=== PATIENT | female | born 1990 ===

== ENCOUNTER 2025-02-04 09:27 | Outpatient (REF) | payer OTHER, SELFPAY ==
[2025-02-04 13:33] LABS: MANUAL DIFF FLAG NO
[2025-02-04 13:53] LABS: Appearance Urine Clear; Glucose Urine UA Negative (Negative); PH 6.5 (5.0-9.0); Specific Gravity - Urine 1.025 (1.005-1.025)
[2025-02-04 13:54] LABS: Hematocrit 36.8 % (37.0-47.0); Hemoglobin 11.7 g/dl (12.0-16.0); Imm Gran Abs Auto 0.01 X10*3/uL (0.00-0.03); Imm Gran Pct Auto 0.2 % (0.0-0.4); Lymphocytes Absolute Auto 2.0 X10*3/uL (1.2-4.9); Mean Corpuscular HGB Conc 31.8 g/dl (31.0-35.0); Mean Corpuscular Hemoglobin 27.1 pg (27.0-33.0); Mean Corpuscular Volume 85.4 fL (80.0-98.0); NRBC Abs Auto 0.000 X10*3/uL (0.0-0.012); NRBC Pct Auto 0.0 /100WBC (0.0-0.2); Platelet Count 297 X10*3/uL (160-400); Red Blood Count 4.31 X10*6/uL (4.20-5.50); White Blood Count 5.3 X10*3/uL (4.8-10.8)
[2025-02-04 14:14] LABS: Alanine Aminotransferase 15 U/L (0-31); Albumin Level 4.2 g/dL (3.5-5.0); Alkaline Phosphatase 55 U/L (39-117); Anion Gap 11 (12-20); Aspartate Amino Transferase 23 U/L (5-31); Blood Urea Nitrogen 16 mg/dL (9-16); Calcium 9.0 mg/dL (8.4-10.2); Carbon Dioxide 25 mmol/L (22-29); Chloride 110 mmol/L (96-108); Cholesterol 164 mg/dL (<200); Estimated Glomerular Filt Rate > 60; HDL Cholesterol 60 mg/dL (>40); Potassium 4.3 mmol/L (3.3-5.1); Sodium 142 mmol/L (135-145); Total Protein 6.9 g/dL (6.5-8.0); Triglycerides 36 mg/dL (<150)
[2025-02-04 15:16] LABS: CT PCR Urine NOT DETECTED (Not Detect.); NG PCR Urine NOT DETECTED (Not Detect.)
[2025-02-05 08:25] LABS: HBS Num1 > 1000.00 mIU/mL (0-7.99); HBsAGNum1 0.42 S/CO (0.00-0.99); HIV Num 1 0.05 S/CO (0.00-0.99); Hepatitis B Surface Antigen Negative (Negative); ~HepC Num1 0.06 S/CO (0.00-0.79); ~Hepatitis B Surface Antibody REACTIVE (Nonreactive); ~Hepatitis C Antibody Nonreactive (Nonreactive)
[2025-02-05 08:29] LABS: Syphilis Screen Nonreactive (Nonreactive)
[2025-02-11 19:09] LABS: Chlamydia Pneumoniae Interp. Past Infection; Chlamydia Trachomatis IgA <1:16 titer (<1:16)
== END 2025-02-04 09:28 | disposition home or self-care (01) ==
LOC: HO.HKASLDS 09:27
PROVIDERS: Visit Provider Student in an Organized Health Care Education/Training Program
DX: Z76.89 Persons encountering health services in other specified circumstances (principal); Z01.89 Encounter for other specified special examinations; Z13.6 Encounter for screening for cardiovascular disorders; Z11.4 Encounter for screening for human immunodeficiency virus [HIV]; Z11.3 Encounter for screening for infections with a predominantly sexual mode of transmission; Z13.1 Encounter for screening for diabetes mellitus; Z13.220 Encounter for screening for lipoid disorders; Z52.4 Kidney donor; Z12.4 Encounter for screening for malignant neoplasm of cervix; N64.4 Mastodynia; R10.2 Pelvic and perineal pain; F12.90 Cannabis use, unspecified, uncomplicated; Z90.5 Acquired absence of kidney
CPT/HCPCS: 80053; 80061; 81003; 83036; 85025; 86631; 86632; 86706; 86780; 86803; 87340; 87389; 87491; 87591

== ENCOUNTER 2025-02-04 09:27 | Outpatient (AMB) | payer OTHER, SELFPAY ==
--- NOTE | 2025-02-04 09:05 | MHC.PC.OV ---
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 How many drinks containing alcohol do you have on a typical day when you are drinking?: 1 or 2 3. How often do you have six or more drinks on one occasion?: Never Total Score: 0 Coding
--- NOTE | 2025-02-04 09:42 | A.OFFPC_ITS ---
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 pain on her lower LEFT QUADRANT LIKE AROUND HER OVERY where her left kidney was remove to donate to mom. also both breast hurting most under or around the armpy area. Tomato Grader Required: No Accompanied by: Self / Same As Patient Allergies No Known Allergies Allergy (Verified 02/04/25 09:42) Tobacco use date assessed: 02/04/25 Dental Screening Dental Screen Date: 02/04/25 Did you have a dental visit in the last 12 months?: Yes Did you have a dental problem in the last 6 months where you did not have access to dental care?: No Was dental information given to patient?: Patient has dentist HPI HPI Comments History of Present Illness Details History of Present Illness The patient is a 34-year-old female presenting with breast pain. Breast Pain: - Experiencing for about a year, initial ly linked to menstrual cycle. - Pain now more intense, radiates to the underarm area. - Does not detect any lumps; reports inc reased pain with pressure. - Describes accompanying nausea; attribu harsh to irregular eating schedule. - Rates pain as 3-4 out of 10, still man ages daily functions. pelvic pain right -associated c menstrual cycle -hx of kidney donation Health Maintenance - Recommended complete blood count (CBC) , complete metabolic panel (CMP), lipid panel, and hemoglobin A1c. - Referral to gynecology for further [facility] health care. - Discussed ultrasound for both breast a nd pelvic evaluation. - Recommended weight management consulta tions post-laboratory assessment. - Advised pap smear, pending insurance r eferral completion. Review of Systems - General: Denies fever, chills. - Cardiovascular: Denies chest pain, pal pitations. - Respiratory: Denies shortness of breat h. - Gastrointestinal: Reports occasional n ausea, denies vomiting. - Musculoskeletal: Reports breast pain, denies other joint or muscle pain. - Gynecological: Reports regular menstru al cycles. 10-point ROS reviewed and negative excep t as noted in HPI Allergies Medication History - Notes not taking ibuprofen or any pain relievers for breast pain. 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 Alert and oriented x 3. Head: Normocephalic, atraumatic Eyes: Pupils equal, round, and reactive to light. Extraocular movements intact Throat: Oropharynx clear. No masses or lesions. ropharynx clear. Mucus membranes moist Neck: Supple. No lymphadenopathy. eft anterior descending artery distention. No jugular vein distention. No bruit. Cardiovascular: Regular rate and rhythm. Normal S1 and S2. No murmurs. murmurs, rubs, or gallops Lungs: Clear to auscultation bilaterally. Breath sounds equal bilaterally. No rales, ronchi, or wheezes. Abdomen: Non-tender. Non-distended. Bowel sounds auscultated. No masses or pain on palpation. hepatosplenomegaly. No mass/rebound/guarding Extremities: No cyanosis, clubbing, or edema. lubbing, cyanosis, and edema. 2+ pulses Neuro: Cranial nerves II-XII grossly intact. Motor/sensory intact. Reflexes 2+. Gait normal. Skin: Warm, dry, and intact. No rash. Discussion Notes I discussed the breast pain evaluation strategy, recommending an ultrasound to further investigate the etiology, possibly fibrocystic changes given the hormonal association. I suggested using ibuprofen 800 mg for discomfort and applying heating pads to the affected areas for symptomatic relief. For ongoing pelvic pain, I recommended a pelvic ultrasound to evaluate possible fibrotic tissue or ovarian cysts, considering the history of nephrectomy. I provided counseling on lifestyle modifications for managing nausea such as increasing meal frequency and avoiding prolonged fasting periods. We discussed the continuation of routine health maintenance tests and recommended necessary referrals to gynecology and a weight management clinic. Anticipatory guidance included the need for regular follow-ups and potential interventions based on pending test results. Plan 1. Mastodynia N64.4 - Plan to conduct breast ultrasound. - Recommending ibuprofen for symptom rel ief. - Use heating pad for additional comfort . 2.pelvic pain - for pelvic and trans vaginal us - Recommending ibuprofen for symptom rel ief. - Use heating pad for additional comfort . Treatment Summary Anticapatory Guidance - Emphasized the importance of routine f ollow-ups for preventative care. - Discussed potential for additional ref errals based on upcoming test results and ongoing evaluations. Patient Instructions - Use ibuprofen 800 mg for breast discom fort as needed. - Apply heating pad to painful areas. - Schedule recommended ultrasounds. - Maintain regular meal schedules to man age nausea. 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 - Desires to gain weight but reports laurie llenges in altering weight over past years. - No significant change in dietary habit s; mentions limited appetite affecting regular meal intake. - No recent changes in living situation. [facility] Family History (Updated 02/04/25 @ 09:47 by Shaheed Mace MA) Father No problems noted. Mother History of kidney transplant Social History (Updated 02/04/25 @ 09:47 by Shaheed Mace MA) [facility] Alcohol intake: current Alcohol intake frequency: holidays/special occasions only Patient Tobacco Use Status: Never used Tobacco service: No Current occupational status: employed Cognitive needs: No Hearing needs: No Vision needs: Yes (rx glasses) Questionnaire PHQ-9 Over the last 2 weeks, how often have you been bothered by any of the following problems? 1. Little interest or pleasure in doing things: not at all 2. Feeling down, depressed, or hopeless: not at all 3. Trouble falling or staying asleep, or sleeping too much: not at all 4. Feeling tired or having little energy: not at all 5. Poor appetite or overeating: not at all 6. Feeling bad about yourself - or that you are a failure or have let yourself or your family down: not at all 7. Trouble concentrating on things, such as reading the newspaper or watching television: not at all 8. Moving or speaking so slowly that other people could have noticed. Or the opp osite - being so fidgety or restless that you have been moving around a lot more than usual: not at all 9. Thoughts that you would be better off or of hurting yourself in some way: not at all Total score: 0 Source: Developed by Drs. Marquez Cavanaugh, Randy Gutiérrez and colleagues, with an educational oxana from [employer]. Thrive Questionnaire I am a: Patient What is your living situation today?: I have a steady place to live Within the past 12 months, did the food you bought not last and you didn't have the money to get more?: Never true Within the past 12 months, did you worry whether your food would run out before you got money to buy more?: I choose not to answer this question Do you have trouble paying for medicines?: No Do you have trouble getting transportation to medical appointments?: No Do you have trouble paying your heating and electricity bill?: Yes Do you have trouble taking care of your child, family member or friend?: No Are you currently unemployed and looking for a job?: No Are you interested in more education?: Yes Please select the resources that you would like help with: Utilities Currently or been in a relationship where the following occur: No concerns reported THRIVE Score: 1 AUDIT C Alcohol Use Questionnaire (AUDIT-C) 1. How often do you have a drink containing alcohol?: Monthly or less 2. How many drinks containing alcohol do you have on a typical day when you are drinking?: 1 or 2 Total Score: 1 ZOFIA-7 AMB Questionnaire ZOFIA-7 Feeling nervous, anxious, or on edge: 0 = Not at all Not being able to stop or control worryin = Several days Worrying too much about different things: 1 = Several days Trouble relaxin = Not at all Being so restless that it is hard to sit still: 0 = Not at all Becoming easily annoyed or irritable: 0 = Not at all Feeling afraid as if something awful might happen: 0 = Not at all Total ZOFIA-7 score (0-4 normal; 5-9 mild; 10-14 moderate; 15-21 severe): 2 Source: Developed by Drs. Marquez Cavanaugh, Randy Gutiérrez and colleagues, with an educational oxana from [employer]. Physical exam (Primary Care) Vital Signs: Last Vital Signs Temp 98.2 F 02/04/25 09:47 Pulse 76 02/04/25 09:47 Resp 16 02/04/25 09:47 BP 102/50 L 02/04/25 09:47 Pulse Ox 96 02/04/25 09:47 Oxygen Delivery Method Room Air 02/04/25 09:47 BMI result Body Mass Index 18.2 Tobacco/Smoking Status: Tobacco use Status Tobacco use date assessed 02/04/25 02/04/25 09:44 Patient Tobacco Use Status Never used Tobacco 02/04/25 09:47 PHQ-9: PHQ-9 Score PHQ-9: Total score 0 02/04/25 09:44 Currently or been in a relationship where the following occur: No concerns reported Coding Level of Care Code New Pt Level 3 (04463) Diagnoses Encounter to establish care Z76.89 Routine lab draw Z01.89 Hypertension screen Z13.6 Screening for HIV (human immunodeficiency virus) Z11.4 Routine screening for STI (sexually transmitted infection) Z11.3 Screening for diabetes mellitus Z13.1 Screening for lipoid disorders Z13.220 Breast pain N64.4 Pelvic pain R10.2 Kidney donor Z52.4 Cervical cancer screening Z12.4 Assessment & Plan Assessment & Plan (1) Encounter to establish care: Code(s): Z76.89 - Persons encountering health services in other specified circumstances (2) Routine lab draw: Code(s): Z01.89 - Encounter for other specified special examinations (3) Hypertension screen: Code(s): Z13.6 - Encounter for screening for cardiovascular disorders (4) Screening for HIV (human immunodeficiency virus): Code(s): Z11.4 - Encounter for screening for human immunodeficiency virus [HIV] (5) Routine screening for STI (sexually transmitted infection): Code(s): Z11.3 - Encounter for screening for infections with a predominantly sexual mode of transmission (6) Screening for diabetes mellitus: Code(s): Z13.1 - Encounter for screening for diabetes mellitus (7) Screening for lipoid disorders: Code(s): Z13.220 - Encounter for screening for lipoid disorders (8) Breast pain: Code(s): N64.4 - Mastodynia (9) Pelvic pain: Code(s): R10.2 - Pelvic and perineal pain (10) Kidney donor: Code(s): Z52.4 - Kidney donor (11) Cervical cancer screening: Code(s): Z12.4 - Encounter for screening for malignant neoplasm of cervix Plan Orders: Orders Comprehensive Met. Panel Today Z.89 - Persons encountering health services in other specified circumstances Hemoglobin A1c Today Z. - Persons encountering health services in other specified circumstances Hepatitis B Surface Antibody Today Z.89 - Persons encountering health services in other specified circumstances Hepatitis B Surface Antigen Today Z76.89 - Persons encountering health services in other specified circumstances Syphilis Screen Today Z. - Persons encountering health services in other specified circumstances US pelvic and transvaginal Today R10.2 - Pelvic and perineal pain, Z76. - Persons encountering health services in other specified circumstances US breast RT complete Today N64.4 - Mastodynia, Z76. - Persons encountering health services in other specified circumstances US breast LT complete Today N64.4 - Mastodynia, Z76.89 - Persons encountering health services in other specified circumstances Complete Blood Count Auto Diff Today Z. - Persons encountering health services in other specified circumstances Chlamydia Species Ab Panel Today Z. - Persons encountering health services in other specified circumstances CT NG by PCR Urine Today Z76.89 - Persons encountering health services in other specified circumstances Hepatitis C Antibody Today Z76.89 - Persons encountering health services in other specified circumstances HIV Ab/Ag Today Z76. - Persons encountering health services in other specified circumstances Lipid Panel Today Z76. - Persons encountering health services in other specified circumstances UA CC w/rflx Micro + Cult Today Z. - Persons encountering health services in other specified circumstances Referrals CROSS TIE CUTTER Referral Z12.4 - Encounter for screening for malignant neoplasm of cervix, Z. - Persons encountering health services in other specified circumstances
[2025-02-04 09:47] VITALS: BP 102/50; PULSE 76; RESP 16; TEMP 36.8; O2SAT 96; BMI 18.2
--- OUTSIDE RECORDS SUMMARY | 2025-02-04 11:15 | XMS_ITS | Clinical Summary ---
Author Organization [facility] Address [address] [place] [address] Care Team Providers Care House Cleaner Name Role Phone Deborah Huggins MD Primary Care Provider [phone] Surgical History Surgery Date Site/Laterality Comments OTHER SURGICAL HISTORY PROCEDURE: DENIES PREVIOUS SURGERY Medical History Medical History Date Comments Patient denies medical problems DX:Patient denies medical problems Family History Medical History Relation Name Comments No Known Problems Brother No Known Problems Father Other: Other Maternal Grandfather HIV/AID s ESRD Maternal Grandmother ESRD Mother Hypertension Mother No Known Problems Sister 1 No Known Problems Sister 2 No Known Problems Sister 3 Relation Name Status Comments Brother Alive Father Alive Maternal Grandfather Maternal Grandmother Mother Alive Sister 1 Alive Sister 2 Alive Sister 3 Alive Social History Tobacco Use Types Packs/Day Years Used Date Smoking Tobacco: Never Smokeless Tobacco: Never Alcohol Use Standard Drinks/Week Comments Yes 1 (1 standard drink = 0.6 oz pur e alcohol) Comments Unknown Sex and Gender Information Value Date Recorded Sex Assigned at Not on file Legal Sex Female 6:21 AM EST Gender Identity Not on file Sexual Orientation Not on file Obstetrics History Last Filed Vital Signs Vital Sign Reading Time Taken Comments Blood Pressure 104/64 06/08/2023 9:00 AM EST Pulse 79 06/08/2023 9:00 AM EST Temperature - - Respiratory Rate - - Oxygen Saturation - - Inhaled Oxygen Concentration - - Weight 47.3 kg (104 lb 3.2 oz) 06/08/2023 9:00 A M EST Height 157.5 cm (5' 2 ) 09/11/2022 10:25 AM EDT Body Mass Index 19.06 09/11/2022 10:25 AM EDT Plan of Treatment Health Maintenance Due Date Last Done Comments DTaP,Tdap,and Td Vaccines (1 - Tdap) 2010 HIV Screening 05/07/2022 Hepatitis C Screening 05/07/2022 Social Influencers of Health Screening 05/07/2022 Hepatitis B Vaccines (2 of 3 - 19+ 3-dose series) 12/04/2023 11/06/2023 Depression Screening 05/28/2024 COVID-19 Vaccine (1 - 2023-2 5 season) 2025 Influenza Vaccine (#1) 2025 06/06/2023 Cervical Cancer Screening: P ap Smear 09/11/2025 09/11/2022 Cholesterol Screening (Lipid Panel) 10/30/2028 10/31/2023 HIB Vaccines Aged Out No longer eligi ble based on patient's age to complete this topic HPV Vaccines Aged Out No longer eligi ble based on patient's age to complete this topic Hepatitis A Vaccines Aged Out No long er eligible based on patient's age to complete this topic IPV Vaccines Aged Out No longer eligi ble based on patient's age to complete this topic MMR Vaccines Aged Out No longer eligi ble based on patient's age to complete this topic Meningococcal ACWY Vaccine Aged Out N o longer eligible based on patient's age to complete this topic Meningococcal B Vaccine Aged Out No l onger eligible based on patient's age to complete this topic Pneumococcal Vaccine: Pediat rics (0 to 5 Years) and At-Risk Patients (6 to 49 Years) Aged Out No longer eligi ble based on patient's age to complete this topic RSV Immunization Patients Un bruce 20 months Aged Out No longer eligible b ased on patient's age to complete this topic Varicella Vaccines Aged Out No longer eligible based on patient's age to complete this topic Procedures Procedure Name Priority Date/Time Associated Diagnosis Comments PAP SMEAR Routine 09/11/2022 from Last 3 Months or Most Recently Relevant to Health Maintenance Results * Pap smear (09/11/2022) 09/11/2022 Narrative HISTORICAL TESTING LAB RESULTING AGENCY - 09/18/2022 6:30 AM EDT [id number] THINPREP PAP, IMAGED: NEGATIVE FOR SQUAMOUS INTRAEPITHELIAL LESION AND MALIGNANCY . ZEINAB RIDLEY(ASCP) (CASE ELECTRONICALLY SIGNED 09 15 2022) RESULT OF APTIMA HIGH RISK HPV ASSAY: HIGH RISK HPV: NEGATIVE (SEROTYPES 16,18,31,33,35,39,45,51,52,56,58,59,66,68) COMPLETED ON 2022-09-13 ADEQUACY: SATISFACTORY ENDOCERVICAL/TRANSFORMATION ZONE COMPONENT ABSENT. SOURCE: THINPREP PAP HPV ANY DX: REFLEX 16 AND 18, CERVICAL, IMAGED CLINICAL INFORMATION: HPV ANY DIAGNOSIS. HORMONES BCP, PAP HX NEGATIVE, [Z01.419] us [facility]TOLOGY ORDERABLES Danay l Result HISTORICAL TESTING LAB RESULTING AGENCY from Last 3 Months or Most Recently Relevant to Health Maintenance Care Teams House Cleaner Relationship Specialty Start Date End Date Deborah Huggins MD [address] [place] [address] PCP - General 01/11/22
== END 2025-02-04 10:31 | disposition home or self-care (01) ==
PROVIDERS: PCP Student in an Organized Health Care Education/Training Program; Visit Provider Student in an Organized Health Care Education/Training Program
DX: N64.4 Mastodynia (principal); R10.2 Pelvic and perineal pain; Z52.4 Kidney donor

== ENCOUNTER 2025-02-13 12:52 | Outpatient (AMB) | payer OTHER, SELFPAY ==
--- OUTSIDE RECORDS SUMMARY | 2025-02-13 12:57 | XMS_ITS | Clinical Summary ---
Author Organization [facility] Address [address] [place] [address] Care Team Providers Care Die Tester Name Role Phone Deborah Huggins MD Primary Care Provider [phone] Surgical History Surgery Date Site/Laterality Comments OTHER [...] RESULTING AGENCY - 09/18/2022 6:30 AM EDT [id number] THINPREP PAP, IMAGED: NEGATIVE FOR SQUAMOUS INTRAEPITHELIAL [...] Recently Relevant to Health Maintenance Care Teams Die Tester Relationship Specialty Start Date End Date Deborah Huggins MD [address] [place] [address] PCP - General 01/11/22
--- NOTE | 2025-02-13 13:08 | A.OFFPC_ITS ---
Vital Signs 02/13/25 13:12 Height 5 ft 4.57 in Weight 114 lb 6 oz BMI 19.3 BP 94/70 Blood Pressure Location Lt brachial Position Sitting Respiration 16 Pulse 80 Pulse Source Pulse Oximeter Temp 98.8 F Temp Source Oral Pulse Oximetry (%) 97 Oxygen Delivery Method Room Air Intake Visit Reasons: 1 week follow up Intake Note: pt have being feeling nausea different times of day she wants to gain weigh. pain on her lower LEFT QUADRANT LIKE AROUND HER OVERY where her left kidney was remove to donate to mom. also both breast hurting most under or around the armpy area. Document Control Assistant Required: No Accompanied by: Self / Same As Patient Allergies No Known Allergies Allergy (Verified 02/13/25 13:09) Tobacco use date assessed: 02/04/25 Dental Screening Dental Screen Date: 02/04/25 Did you have a dental visit in the last 12 months?: Yes Did you have a dental problem in the last 6 months where you did not have access to dental care?: No Was dental information given to patient?: Patient has dentist HPI HPI Comments History of Present Illness Details History of Present Illness The patient is a 34-year-old female presenting for follow-up on laboratory results and anemia. Anemia: - Hemoglobin slightly low at 11.7 g/dL. - Reports heavy menstruation, particular ly the first two days. - Plans to begin iron supplementation. Pain (Recurrent unspecified site): - Recurrent pain that varies in intensit y. - Initial recommendation for ibuprofen w as not adhered to by the patient. Review of Systems - Hematologic: Reports heavy menstrual b leeding primarily the first two days. - General: Denies systemic symptoms. - Gastrointestinal: Denies changes in ninfa wel habits or gastrointestinal discomfort. - Musculoskeletal: Reports episodes of p ain that come and go. 10-point ROS reviewed and negative excep t as noted in HPI Past Medical History - Vaccinated for Hepatitis B as confirme d by reactive hepatitis B surface an tibody test. - No personal history of HIV or Hepatiti s C. Health Maintenance - Pending referral for OBGYN evaluation. - Diagnostic bilateral mammogram with as sociated right and left limited ultra sound is pending insurance resolution. - Encouraged dietary intake of iron-rich foods. Physical Exam - General- Well-appearing, in no acute d istress. - Vital Signs- Within normal limits. - HEENT- Normocephalic, atraumatic; PERR LA; EOMI; clear conjunctiva; anicteric sclera; oropharynx clear; moist mucous membranes; TMs intact bilaterally. - Neck- Supple with no lymphadenopathy, thyromegaly, JVD, or carotid bruits. - Cardiovascular- Regular rate and rhyth m, normal S1/S2, no murmurs, rubs, or gallops; peripheral pulses 2+ and symmetric; no edema. - Respiratory- Lungs clear to auscultati on bilaterally; normal respiratory effort. - Abdomen- Soft, non-tender, non-distend ed; normoactive bowel sounds; no hepatosplenomegaly or masses. - Musculoskeletal- Full range of motion without joint swelling or deformity; normal gait. - Skin- Warm, dry, intact; no rashes, le sions, or pallor. - Neurological- Alert, oriented x3; cran ial nerves II-XII intact; strength 5/5 throughout; intact sensation; reflexes 2+ symmetric; normal coordination and gait. - Psychiatric- Appropriate mood and affe ct; normal judgment and insight. Plan 1. follow-up for results laboratory 2. Other abnormality of red blood cells R71.8 3. Anemia, unspecified D64.9 - Begin iron supplements and vitamin C. Monitor CBC in three months. 4. abnormal chemistry results 5. elevated chloride 6. prediabetes discussed diet and exercise repeat in 6 months 7. Pain Recurrent Unspecified Site - Reinforce ibuprofen use as needed. Discussion Notes During the consultation, I reviewed the patient?s laboratory results indicating slight anemia with hemoglobin at 11.7 g/dL. We discussed her menstrual patterns, which suggest increased blood loss. I initiated iron supplementation with vitamin C to improve absorption and advised dietary adjustments. I explained potential side effects, such as gastrointestinal discomfort, and emphasized the need to monitor her hemoglobin levels. Additionally, we addressed her recurrent pain management with ibuprofen, encouraging her to adhere to the prescribed regimen. Plans for a diagnostic bilateral mammogram and pelvic ultrasound are in place, pending insurance clarification. Hepatitis B immunity was confirmed, reassuring the patient regarding her status. discussed prediabetes labs discuss Lifestyle changes repeat in 6 months I clarified all laboratory findings to the patient?s satisfaction. Patient Instructions - Take iron supplements with vitamin C d aily to improve absorption. - Expect possible side effects like cons tipation; maintain hydration and dietary fiber. - Follow up with complete blood count te sting in three months. - Use ibuprofen as needed for pain manag ement. - lifestyle changes with diet and exerci se - Schedule and attend diagnostic imaging appointments as soon as insurance issues are resolved. PENDING SALE TO [facility] Family History Father No problems noted. Mother History of kidney transplant Social History Housing: Condominium Alcohol intake: current Alcohol intake frequency: holidays/special occasions only Patient Tobacco Use Status: Never used Tobacco service: No Current occupational status: employed Cognitive needs: No Hearing needs: No Vision needs: Yes (rx glasses) Questionnaire PHQ-9 Over the last 2 weeks, how often have you been bothered by any of the following problems? 1. Little interest or pleasure in doing things: not at all 2. Feeling down, depressed, or hopeless: not at all 3. Trouble falling or staying asleep, or sleeping too much: not at all 4. Feeling tired or having little energy: not at all 5. Poor appetite or overeating: not at all 6. Feeling bad about yourself - or that you are a failure or have let yourself or your family down: not at all 7. Trouble concentrating on things, such as reading the newspaper or watching television: not at all 8. Moving or speaking so slowly that other people could have noticed. Or the opposite - being so fidgety or restless that you have been moving around a lot more than usual: not at all 9. Thoughts that you would be better off or of hurting yourself in some way: not at all Total score: 0 Source: Developed by Drs. Marquez Cavanaugh, Consuelo Perez, Randy Fuentes and colleagues, with an educational oxana from [employer]. Thrive Questionnaire Date Thrive assessed: 02/04/25 I am a: Patient What is your living situation today?: I have a steady place to live Within the past 12 months, did the food you bought not last and you didn't have the money to get more?: Never true Within the past 12 months, did you worry whether your food would run out before you got money to buy more?: I choose not to answer this question Do you have trouble paying for medicines?: No Do you have trouble getting transportation to medical appointments?: No Do you have trouble paying your heating and electricity bill?: Yes Do you have trouble taking care of your child, family member or friend?: No Do you have trouble with day-to-day activities such as bathing, preparing meals, shopping, managing finances, etc.?: No Are you currently unemployed and looking for a job?: No Are you interested in more education?: Yes Please select the resources that you would like help with: Utilities Currently or been in a relationship where the following occur: No concerns reported THRIVE Score: 1 AUDIT C Alcohol Use Questionnaire (AUDIT-C) 1. How often do you have a drink containing alcohol?: Monthly or less 2. How many drinks containing alcohol do you have on a typical day when you are drinking?: 1 or 2 Total Score: 1 ZOFIA-7 AMB Questionnaire ZOFIA-7 Date ZOFIA - 7 assessed: 02/04/25 Feeling nervous, anxious, or on edge: 0 = Not at all Not being able to stop or control worryin = Several days Worrying too much about different things: 1 = Several days Trouble relaxin = Not at all Being so restless that it is hard to sit still: 0 = Not at all Becoming easily annoyed or irritable: 0 = Not at all Feeling afraid as if something awful might happen: 0 = Not at all Total ZOFIA-7 score (0-4 normal; 5-9 mild; 10-14 moderate; 15-21 severe): 2 Source: Developed by Drs. Marquez Cavanaugh, Consuelo Perez, Randy Fuentes and colleagues, with an educational oxana from [employer]. Physical exam (Primary Care) Vital Signs: Last Vital Signs Temp 98.8 F 02/13/25 13:12 Pulse 80 02/13/25 13:12 Resp 16 02/13/25 13:12 BP 94/70 02/13/25 13:12 Pulse Ox 97 02/13/25 13:12 Oxygen Delivery Method Room Air 02/13/25 13:12 BMI result Body Mass Index 19.3 Tobacco/Smoking Status: Tobacco use Status Tobacco use date assessed 02/04/25 02/13/25 13:09 Patient Tobacco Use Status Never used Tobacco 02/13/25 13:09 PHQ-9: PHQ-9 Score PHQ-9: Total score 0 02/13/25 13:09 Thrive Assessment: Date of Thrive Assessment Date Thrive assessed 02/04/25 02/13/25 13:09 Currently or been in a relationship where the following occur: No concerns reported Coding Level of Care Code Tele Est Pt Level 3 (29654) Diagnoses Bilateral mastodynia N64.4 Prediabetes R73.03 Anemia, unspecified type D64.9 Anemia type: unspecified type Other specified abnormal findings of blood chemistry R79.89 Red blood cell abnormality R71.8 Encounter to discuss test results Z71.2 Assessment & Plan Assessment & Plan (1) Bilateral mastodynia: Code(s): N64.4 - Mastodynia (2) Prediabetes: Code(s): R73.03 - Prediabetes (3) Anemia: Code(s): D64.9 - Anemia, unspecified Qualifiers: Anemia type: unspecified type Qualified Code(s): D64.9 - Anemia, unspecified (4) Other specified abnormal findings of blood chemistry: Code(s): R79.89 - Other specified abnormal findings of blood chemistry (5) Red blood cell abnormality: Code(s): R71.8 - Other abnormality of red blood cells (6) Encounter to discuss test results: Code(s): Z71.2 - Person consulting for explanation of examination or test findings Plan Medications: New ferrous sulfate 325 mg PO DAILY 30 tabs 2RF D64.9 - Anemia, unspecified ascorbic acid (vitamin C) 500 mg PO DAILY 30 tabs 2RF
[2025-02-13 13:12] VITALS: BP 94/70; PULSE 80; RESP 16; TEMP 37.1; O2SAT 97; BMI 19.3
== END 2025-02-13 13:36 | disposition home or self-care (01) ==
LOC: HO.HMCFMS 12:53
PROVIDERS: PCP Student in an Organized Health Care Education/Training Program; Visit Provider Student in an Organized Health Care Education/Training Program
DX: N64.4 Mastodynia (principal); R73.03 Prediabetes; D64.9 Anemia, unspecified; R79.89 Other specified abnormal findings of blood chemistry; R71.8 Other abnormality of red blood cells; Z71.2 Person consulting for explanation of examination or test findings

== ENCOUNTER 2025-04-10 10:46 | Outpatient (AMB) | payer OTHER, SELFPAY ==
--- NOTE | 2025-04-10 10:47 | MHC.PC.OV ---
Vital Signs 04/10/25 10:48 Height 5 ft 4.57 in Weight 114 lb 7 oz BMI 19.3 BP 111/67 Blood Pressure Location Rt brachial Position Sitting Respiration 16 Pulse 77 Pulse Source Pulse Oximeter Temp 97.7 F Temp Source Oral Pulse Oximetry (%) 98 Oxygen Delivery Method Room Air Intake Visit Reasons: work clearance Allergies No Known Allergies Allergy (Verified 04/10/25 10:48) Medication List - Last Reconciled 04/10/25 by Dmitri Shin MD ascorbic acid (vitamin C) 500 mg PO DAILY ferrous sulfate 325 mg PO DAILY Tobacco use date assessed: 02/04/25 Dental Screening Dental Screen Date: 02/04/25 HPI HPI Comments History of Present Illness Details History of Present Illness The patient is a 34-year-old female presenting for a work clearance letter. Mastalgia: The patient reports breast pain, which she states is related to her upcoming menses. She denies taking any medication for the pain, such as ibuprofen. Health Maintenance: The patient had previously scheduled breast and pelvic imaging but canceled the appointments due to a conflict with her NCLEX exam. She has since rescheduled these studies, with the breast imaging scheduled for the upcoming Sunday at 9:00 AM. Medications: - The patient reports she is not taking any medications, including ibuprofen for breast pain. 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 - Education: She plans to work as a PM for 6 months, complete prerequisites for an RN program, and then bridge to become an RN. - Substance Use: The patient underwent a urine drug test for employment. Past Medical History Health Maintenance - The patient will proceed with rescheduled breast and pelvic imaging. [facility] Medical History (Updated 04/10/25 @ 12:51 by Dmitri Shin MD) Iron deficiency anemia Mastalgia Family History Father No problems noted. Mother History of kidney transplant Social History Housing: Condominium Alcohol intake: current Alcohol intake frequency: holidays/special occasions only Patient Tobacco Use Status: Never used Tobacco service: No Current occupational status: employed Cognitive needs: No Hearing needs: No Vision needs: Yes (rx glasses) Questionnaire Thrive Questionnaire Date Thrive assessed: 02/04/25 I am a: Patient What is your living situation today?: I have a steady place to live Within the past 12 months, did the food you bought not last and you didn't have the money to get more?: Never true Within the past 12 months, did you worry whether your food would run out before you got money to buy more?: I choose not to answer this question Do you have trouble paying for medicines?: No Do you have trouble getting transportation to medical appointments?: No Do you have trouble paying your heating and electricity bill?: Yes Do you have trouble taking care of your child, family member or friend?: No Do you have trouble with day-to-day activities such as bathing, preparing meals, shopping, managing finances, etc.?: No Are you currently unemployed and looking for a job?: No Are you interested in more education?: Yes Please select the resources that you would like help with: Utilities Currently or been in a relationship where the following occur: No concerns reported THRIVE Score: 1 ZOFIA-7 AMB Questionnaire ZOFIA-7 Date ZOFIA - 7 assessed: 02/04/25 Source: Developed by Drs. Marquez Cavanaugh, Consuelo Perez, Randy Fuentes and colleagues, with an educational oxana from [employer]. Review of Systems Narrative Review of Systems - Breast: Reports breast pain, which she attributes to her upcoming menstrual cycle. 10-point ROS reviewed and negative except as noted in HPI Physical exam (Primary Care) BMI result Body Mass Index 19.3 Tobacco/Smoking Status: Tobacco use Status Tobacco use date assessed 02/04/25 04/10/25 10:48 Patient Tobacco Use Status Never used Tobacco 04/10/25 10:48 Thrive Assessment: Date of Thrive Assessment Date Thrive assessed 02/04/25 04/10/25 10:48 Currently or been in a relationship where the following occur: No concerns reported Narrative Physical Exam General: Well-appearing, in no acute distress. Vital signs: Within normal limits. HEENT: Normocephalic, atraumatic. PERRLA, EOMI. Conjunctiva clear, sclera anicteric. Oropharynx clear, mucous membranes moist. TMs intact bilaterally. Neck: Supple, no lymphadenopathy, no thyromegaly, no JVD or carotid bruits. Cardiovascular: RRR, normal S1/S2, no murmurs, rubs, or gallops. Peripheral pulses 2+ and symmetric. No edema. Respiratory: Lungs clear to auscultation bilaterally, no wheezes, rales, or rhonchi. Normal effort. Abdomen: Soft, non-tender, non-distended. Normoactive bowel sounds. No hepatosplenomegaly, no masses. MSK: Full range of motion, no joint swelling or deformity. Normal gait. Skin: Warm, dry, intact. No rashes, lesions, or pallor. Neuro: Alert and oriented x3. Cranial nerves II-XII intact. Strength 5/5 throughout. Sensation intact. Reflexes 2+ symmetric. Normal coordination and gait. Psych: Appropriate mood and affect. Normal judgment and insight. Coding Level of Care Code Est Pt Level 3 (13936) Diagnoses Mastalgia N64.4 Iron deficiency anemia D50.9 Prediabetes R73.03 Assessment & Plan Assessment & Plan (1) Mastalgia: Code(s): N64.4 - Mastodynia Category: Medical (2) Iron deficiency anemia: Code(s): D50.9 - Iron deficiency anemia, unspecified Category: Medical (3) Prediabetes: Code(s): R73.03 - Prediabetes Plan Consent Patient was informed and verbally consented to the use of an ambient scribe for clinic note documentation during this visit. Plan 1. Work Clearance - A letter will be provided to the patient stating she is cleared to work. - The patient was informed the letter will be ready for pickup on Sunday. 2. Mastalgia - The patient reports breast pain related to her menstrual cycle and declines medication. - Patient to follow up with scheduled breast imaging. Discussion Notes I will provide the patient with a letter clearing her to work. I advised her that the letter will be ready on Sunday and that the staff will contact her to coordinate pickup or faxing. Patient Instructions - A letter clearing you to work will be ready on Sunday. - The office staff will call you to arrange for pickup or faxing of the letter. - Please proceed with your scheduled breast imaging on Sunday at 9:00 AM. - Ensure you also follow up with your rescheduled pelvic imaging appointment. 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 The visit was administrative in nature, and the requested documentation will be provided. The patient also briefly mentioned cyclical breast pain and is pending appropriate follow-up with breast and pelvic imaging, which she has already rescheduled. No acute medical intervention was required during this encounter. Total Time Statement 20 min Total time spent caring for the patient today includes pre-visit chart review, documentation, review of laboratory and diagnostic imaging results, medication reconciliation, medically necessary evaluation, counseling on diagnoses, care coordination, ordering appropriate tests and medications, review of tests performed by other providers, reporting test results to the patient, and communication with other healthcare providers.
[2025-04-10 10:48] VITALS: BP 111/67; PULSE 77; RESP 16; TEMP 36.5; O2SAT 98; BMI 19.3
== END 2025-04-10 11:00 | disposition home or self-care (01) ==
LOC: HO.HMCFMS 10:47
PROVIDERS: PCP Student in an Organized Health Care Education/Training Program; Visit Provider Student in an Organized Health Care Education/Training Program
DX: N64.4 Mastodynia (principal); D50.9 Iron deficiency anemia, unspecified; R73.03 Prediabetes

== ENCOUNTER 2025-04-13 09:49 | Outpatient (REF) | payer OTHER, SELFPAY ==
--- NOTE | ~2025-04-13 | MM_ITS ---
EXAMINATION(S): 1. MM DIAGNOSTIC DIGITAL BREAST TOMOSYNTHESIS, BILATERAL 2. TARGETED ULTRASOUND OF THE BILATERAL BREASTS CLINICAL INFORMATION: Mastodynia. According to the patient, bilateral diffuse breast pain, that starts two weeks before her period and when the period starts, the pain goes away. COMPARISON: None. This is a baseline study. TECHNIQUE: Digital breast tomosynthesis is performed in both the mediolateral oblique and craniocaudal views along with computer-aided detection (CAD). Synthesized 2D images are generated from the tomosynthesis. No skin markers were placed as the patient described pain as diffuse. FINDINGS: BREAST COMPOSITION: The breasts are extremely dense, which lowers the sensitivity of mammography. RIGHT BREAST: No significant masses, suspicious calcifications or other abnormalities are seen. Targeted ultrasound of the right breast was performed at the location of the maximal tenderness as indicated by the patient. The survey was performed throughout the upper outer quadrant and did not reveal suspicious sonographic findings. LEFT BREAST: No significant masses, suspicious calcifications or other abnormalities are seen. Targeted ultrasound of the left breast was performed at the location of maximal tenderness as indicated by the patient. The survey was performed throughout the upper outer quadrant and did not reveal suspicious sonographic findings. Incidental note is made of septated cyst measuring 0.7 x 0.6 x 0.4 cm at 12 o'clock position 7 cm from the nipple. No internal vascularity demonstrated with color Doppler evaluation. MM/MM tomosynthesis diagnostic BI IMPRESSION: RIGHT BREAST: Negative, no evidence of malignancy. Clinical follow-up is recommended for the concern of diffuse pain. LEFT BREAST: Benign, no evidence of malignancy. Clinical follow-up is recommended for the concern of diffuse pain. ASSESSMENT: BI-RADS: Category 2: Benign RECOMMENDATION: 1. Patient should be managed based on the clinical impression. 2. Otherwise, routine annual screening mammography. Results were provided to the patient at time of visit by the technologist. This patient's information was entered into a reminder system with a target due date for their next mammogram. Electronically signed by: Eric Rodriguez MD 04/13/2025 10:49 AM [facility]
== END 2025-04-13 09:50 | disposition home or self-care (01) ==
LOC: HO.MAMMO 09:49
PROVIDERS: PCP Student in an Organized Health Care Education/Training Program; Visit Provider Student in an Organized Health Care Education/Training Program
DX: N64.4 Mastodynia (principal)
CPT/HCPCS: 76642; 77062; 77066

== ENCOUNTER → 2025-04-13 10:00 | Outpatient (BNV) | payer OTHER, SELFPAY | PROVIDERS: PCP Student in an Organized Health Care Education/Training Program; Visit Provider Radiology Body Imaging | DX: N64.4 Mastodynia (principal) | CPT/HCPCS: 76642; 77062; 77066 ==